=== PATIENT | male | born 1960 | race Asian ===

== ENCOUNTER 2021-06-11 09:19 | Outpatient (AMB) | payer MEDICARE, MEDICAID, SELFPAY ==
--- NOTE | 2021-06-11 09:21 | CWCCLINC_ITS ---
OP Care Transition [facility] RN Coordinator DC F/U Call Post Discharge Follow-up call: First Attempt FU Call Follow up call date: 06/11/21 Scheduled Follow-up with PCP: Yes (Seeing Maryann today at 10:15. Can drive self there.) DME scheduled or recieved: No Prescribed Medication obtained: Yes (Obtained meds from [facility]. OTC not covered. No issues paying for meds) Patient compliant with current medication regimen: Yes Follow-up call Summary: Patient may have CABG or other cardiac procedure. Has fear around procedures. He lives alone, but his brother Nury helps him. He does cook for himself, and can drive. Currently, no anticipated health or social concerns. [facility] Care [employer] Follow-up call Follow up call date: 06/11/21 Follow-up call Summary: Patient may have CABG or other cardiac procedure. Has fear around procedures. He lives alone, but his brother Nury helps him. He does cook for himself, and can drive. Currently, no anticipated health or social concerns. *[facility] Office Visit complete [facility] Offive Visit Complete [facility] Visit Complete?: Yes CHF Chest X-Ray 08/23/21
== END 2021-06-11 12:49 | disposition home or self-care (01) ==
LOC: HODCWC 09:19
PROVIDERS: PCP Family Medicine; Referring Provider Family Medicine